=== PATIENT | female | born 1960 | race Caucasian/White ===

== ENCOUNTER 2017-02-21 11:24 | Emergency (ER) | payer SELFPAY ==
[2017-02-21 11:58] LABS: Hematocrit 35.3 % (37.0-47.0); Hemoglobin 11.9 gm/dL (12.5-16.0); Mean Cell Volume 89.4 fl (78-100); Mean Corpuscular Hemoglobin 30.1 pg (27-31); Mean Corpuscular Hgb Conc 33.7 g/dl (32-36); Mean Platelet Volume 11.3 fl (6.0-9.5); Neutrophil # 10.9 K/mm3 (1.3-6.0); Platelet Count 221 K/mm3 (150-450); Red Blood Count 3.95 M/mm3 (4.2-5.4); White Blood Count 12.7 K/mm3 (4.0-10.5)
--- NOTE | 2017-02-21 12:01 | ERNOTE ---
Abdominal HPI - General Chief Complaint: Abdominal Pain Time Seen by Provider: 02/21/17 11:35 Source: patient Exam Limitations: no limitations - Immun/Allergies/Home Medications Immunizatons: IMMUNIZATION HX Immunizations Up to Date Yes History of Influenza Vaccine No Hx Pneumococcal Vaccination No Allergies/Adverse Reactions: Allergies No Known Allergies Allergy (Verified 02/21/17 11:35) Home Medications: HOME MEDICATIONS Atenolol [Tenormin] 100 mg PO DAILY 10/23/15 [Last Taken Unknown] Atorvastatin Calcium [Lipitor] 40 mg PO DAILY 10/23/15 [Last Taken Unknown] Gemfibrozil [Lopid] 600 mg PO BID 10/23/15 [Last Taken Unknown] Triamterene/Hydrochlorothiazid [Maxzide 75 MG/50 MG] 1 tab PO DAILY 10/23/15 [ Last Taken Unknown] Venlafaxine HCl [Effexor Xr] 150 mg PO DAILY 10/23/15 [Last Taken Unknown] Ibuprofen [Motrin] 800 mg PO TID PRN #30 tablet 02/21/17 [Last Taken Unknown] Sulfamethoxazole/Trimethoprim [Bactrim Ds] 1 tab PO BID #14 tablet 02/21/17 [ Last Taken Unknown] - History of Present Illness Narrative: Here for suprapubic abd pain and burning upon urination for four days, no fevers or chills. Review of Systems - Review of Systems Constitutional: Present: no symptoms reported EYE: Present: no symptoms reported ENT: Present: no symptoms reported Respiratory: Present: no symptoms reported Cardiology: Present: no symptoms reported Gastrointestinal/Abdominal: Present: See HPI Genitourinary: Present: See HPI Musculoskeletal: Present: no symptoms reported Neurological: Present: headache - complains of mild frontal headache - Patient's Past Medical History Patient History - Medical: Other Patient History - Cardiac/Respiratory: Hypertension Patient History - Cancer: No Hx of Cancer Patient History - Surgical Procedures: Tubal Ligation, Other Patient History - Other: None LMP (females 10-50): post menopausal - Social History Living Situations: home Abuse History: No History of abuse Psych History: No pertinent hx Smoking Status: Current every day smoker Alcohol Use: none Drug Use: none - Immunizations Immunizations Up to Date: Yes Hx Pneumococcal Vaccination: No History of Influenza Vaccine: No Physical Exam - Physical Exam General Appearance: Present: wd/wn, alert, no apparent distress - pt is crying and writhing but when I ask where it hurts she states all over, on repeat questioning she points to her abd Head Exam: Present: normal inspection Ears, Nose, Throat: Present: normal ENT inspection Neck: Present: normal inspection Respiratory: Present: no respiratory distress, normal breath sounds, no accessory muscle use, chest nontender, lungs clear Cardiovascular/Chest: Present: regular rate, rhythm, no murmur, normal peripheral pulses Gastrointestinal/Abdominal: Present: normal bowel sounds, nondistended, soft, other - patient's abdominal exam reveals that the belly is soft there is no rebound there is no guarding there is no tenderness or masses however when I just touch the skin of the belly the patient complains of severe pain and she is writhing in pain. When I leave the room and listened through the door and the writhing and crying stops. Back Exam: Present: normal inspection ED Progress - Results and Orders Patient's Lab Results:: I have reviewed the patient's lab results. - Vital Signs Patient's Vital Signs:: I have reviewed the patient's vital signs. Vital Signs: Vital Signs 02/21/17 11:28 Temperature 38.2 C H Pulse Rate 115 H Respiratory 22 H Rate Blood Pressure 158/68 O2 Sat by Pulse 98 Oximetry - Progress/Reassessment Chief Complaint: Abdominal Pain Plan - Plan Plan: Patient's symptomatology examination and urinalysis in addition to an elevated white count all point towards the direction of clinical diagnosis of urinary tract infection for which the patient delayed coming in. She does not have any flank pain I do not believe this is a pyelonephritis patient will be treated for a simple urinary tract infection at this time. Departure - Departure Clinical Impression: Urinary tract infection Qualifiers: Urinary tract infection type: site unspecified Hematuria presence: with hematuria Qualified Code(s): N39.0 - Urinary tract infection, site not specified ; R31.9 - Hematuria, unspecified Disposition: Home self-care Condition: Good Instructions: Urinary Frequency, Adult, Urinalysis Test Referrals: Saud Hickey MD [Primary Care Provider] - Prescriptions: Ibuprofen [Motrin] 800 mg PO TID PRN #30 tablet PRN Reason: Pain Sulfamethoxazole/Trimethoprim [Bactrim Ds] 1 tab PO BID #14 tablet
[2017-02-21 12:02] LABS: Urine Appearance Cloudy; Urine Color Yellow
[2017-02-21 12:04] LABS: Urine Bilirubin Negative (NEGATIVE); Urine Blood 50 /ul (NEGATIVE); Urine Ketone Negative (NEGATIVE)
[2017-02-21 12:05] LABS: Urine Nitrite Negative (NEGATIVE); Urine Protein 100 mg/dL (NEGATIVE); Urine Urobilinogen Normal (NORMAL)
[2017-02-21 12:06] LABS: Urine WBC >50 /hpf (0-5)
[2017-02-21 12:07] LABS: Urine Bacteria 4+
[2017-02-21 12:09] LABS: Albumin * 2.9 gm/dl (3.4-5.0); Anion Gap 16.9 mmol/L (6.8-13.8); Bilirubin, Total 0.4 mg/dL (0.0-1.1); Ca. Corrected For Albumin 9.8 mg/dL (8.4-10.2); Calcium * 9.2 mg/dL (7.9-10.9); Carbon Dioxide 22.5 mmol/L (24-32.6); Potassium 3.4 mmol/L (3.4-4.6); Total Protein 7.4 gm/dL (6.2-8.2)
[2017-02-21] MEDS ORDERED: SULFAMETHOXAZOLE/TRIMETHOPRIM 1 TAB TABLET PO ONE (12:17)
[2017-02-21] MEDS ORDERED: KETOROLAC TROMETHAMINE 60 MG/2 ML VIAL IM ONE ×2 (12:17)
[2017-02-21] MEDS ORDERED: SULFAMETHOXAZOLE/TRIMETHOPRIM 1 TAB TABLET ONE (12:17)
[2017-02-21 12:21] VITALS: BP 147/73
== END 2017-02-21 12:30 | disposition home or self-care (01) ==
LOC: ER 11:24
DX: N39.0 Urinary tract infection, site not specified (principal); R31.9 Hematuria, unspecified; F17.200 Nicotine dependence, unspecified, uncomplicated; I10 Essential (primary) hypertension